=== PATIENT | male | born 1940 | race African-American/Black ===

== ENCOUNTER 2016-12-12 15:22 | Emergency (ER) | payer MEDICARE, OTHER ==
[~2016-12-12] VITALS: Ht 177.8 cm; Wt 80.0 kg
[~2016-12-12 15:22] MED LIST: AMLO1CAP PO; SIMV20TA6 PO
[2016-12-12] MEDS ORDERED: SODIUM CHLORIDE 0.9% 1,000 ML IV ONE (16:02)
[2016-12-12 16:47] LABS: BASOPHILS % 0.5 % (0.0-2.0); EOSINOPHILS % 0.4 % (0.0-5.0); HEMATOCRIT. 37.8 % (42.0-52.0); LYMPHOCYTES % 18.4 % (20.0-50.0); MEAN CORPUSCULAR HEMOGLOBIN 30.9 pg (28.0-32.0); MEAN CORPUSCULAR VOLUME 89.9 fL (80.0-94.0); MEAN PLATELET VOLUME 8.4 fl (7.4-10.4); MONOCYTES % 6.9 % (2.0-8.0); NEUTROPHILS % 73.8 % (40.0-76.0); PLATELET 205 x1000/uL (130-400); RED BLOOD CELL COUNT 4.21 mill/uL (4.7-6.1)
[2016-12-12 16:50] LABS: PROTHROMBIN TIME 10.8 sec
[2016-12-12 16:58] LABS: CARBON DIOXIDE 25 mEq/L (21-32); CHLORIDE 106 mEq/L (98-107)
[2016-12-12 17:16] LABS: CLARITY URINE CLEAR (CLEAR); COLOR URINE DARK YELLOW (YELLOW); GLUCOSE URINE NEGATIVE (NEGATIVE); KETONES URINE TRACE (NEGATIVE); LEUKOCYTE ESTERASE URINE TRACE (NEGATIVE); NITRITE URINE NEGATIVE (NEGATIVE); OCCULT BLOOD URINE NEGATIVE (NEGATIVE); PROTEIN URINE NEGATIVE (NEGATIVE); SPECIFIC GRAVITY URINE 1.023 (1.005-1.030)
[2016-12-12] MEDS ORDERED: SODIUM CHLORIDE 0.9% 1000ML BAG (SEPSIS BOLUS) IV ONE (17:30)
[2016-12-12] MEDS ORDERED: SODIUM CHLORIDE 0.9% 1,400 ML IV SCH (17:45)
[2016-12-12 19:25] VITALS: BP 160/79
== END 2016-12-12 19:30 | disposition home or self-care (01) ==
LOC: ER 16:36
DX: N39.0 Urinary tract infection, site not specified (principal); E78.00 Pure hypercholesterolemia, unspecified; I51.9 Heart disease, unspecified; Z86.73 Personal history of transient ischemic attack (TIA), and cerebral infarction without residual deficits
CPT/HCPCS: 36415; 71010; 72146; 72148; 80053; 81001; 83605; 83690; 85025; 85610; 87040; 87086; 96360; 96361; 99285; J7030; A4315

== ENCOUNTER 2016-12-26 14:51 | Emergency (ER) | payer MEDICARE, OTHER ==
[~2016-12-26] VITALS: Ht 177.8 cm; Wt 80.0 kg
[2016-12-26 17:45] VITALS: BP 136/72
== END 2016-12-26 18:16 | disposition home or self-care (01) ==
LOC: ER 17:08
DX: R33.9 Retention of urine, unspecified (principal); I10 Essential (primary) hypertension
CPT/HCPCS: 99281

== ENCOUNTER 2017-10-09 12:09 | Emergency (ER) | payer MEDICARE, OTHER ==
[~2017-10-09] VITALS: Ht 177.8 cm; Wt 81.0 kg
[2017-10-09] MEDS ORDERED: MAGNESIUM CITRATE 300ML SOLUTION PO ONE (13:15)
[2017-10-09] MEDS ORDERED: LACTULOSE 20G/30ML UDC PO ONE (13:15)
[2017-10-09 14:04] VITALS: BP 123/68
== END 2017-10-09 15:00 | disposition home or self-care (01) ==
LOC: ER 15:00
DX: K59.00 Constipation, unspecified (principal); R30.0 Dysuria; I10 Essential (primary) hypertension
CPT/HCPCS: 51702; 99284; A4315

== ENCOUNTER 2020-02-16 11:50 | Inpatient (IN) | payer MEDICARE, OTHER ==
[~2020-02-16] VITALS: Ht 172.7 cm; Wt 77.8 kg
[~2020-02-16 11:50] MED LIST changes: +SIMV-43 PO; -SIMV20TA6 PO
[2020-02-16 13:08] LABS: BASOPHILS % 0.6 % (0.0-2.0); EOSINOPHILS % 0.5 % (0.0-5.0); HEMATOCRIT. 39.3 % (42.0-52.0); HEMOGLOBIN. 13.2 g/dL (14.0-18.0); LYMPHOCYTES % 19.5 % (20.0-50.0); MEAN CORPUSCULAR HEMOGLOBIN 30.4 pg (28.0-32.0); MEAN CORPUSCULAR VOLUME 90.4 fL (80.0-94.0); MEAN PLATELET VOLUME 8.4 fl (7.4-10.4); NEUTROPHILS % 71.4 % (40.0-76.0); PLATELET 267 x1000/uL (130-400); RED BLOOD CELL COUNT 4.35 mill/uL (4.7-6.1); RED CELL DISTRIBUTION WIDTH 16.3 % (11.6-14.6)
[2020-02-16 13:11] LABS: CHLORIDE 112 mEq/L (98-107)
[2020-02-16 13:12] LABS: INR 1.1
[2020-02-16 13:15] LABS: ETHANOL BLOOD < 10 mg/dL
[2020-02-16] MEDS ORDERED: AZITHROMYCIN 500 MG in DEXT 5% WATER 250 ML IV ONE (13:30)
[2020-02-16] MEDS ORDERED: CEFTRIAXONE 1 G PREMIX 50 ML IV ONE (13:30)
[2020-02-16 15:22] LABS: CLARITY URINE CLEAR (CLEAR); COLOR URINE ORANGE (YELLOW); KETONES URINE TRACE (NEGATIVE); LEUKOCYTE ESTERASE URINE NEGATIVE (NEGATIVE); NITRITE URINE NEGATIVE (NEGATIVE); OCCULT BLOOD URINE 1+ (NEGATIVE); PH URINE 5.5 (4.5-8.0); PROTEIN URINE 1+ (NEGATIVE); SPECIFIC GRAVITY URINE 1.024 (1.005-1.030)
[2020-02-16 15:43] LABS: *COCAINE SCREEN URINE NEGATIVE (NEGATIVE)
[2020-02-16 15:44] LABS: *AMPHETAMINES SCREEN URINE NEGATIVE (NEGATIVE); *BARBITURATES SCREEN URINE NEGATIVE (NEGATIVE); CANNABINOID URINE SCREEN NEGATIVE (NEGATIVE); METHADONE URINE SCREEN NEGATIVE (NEGATIVE); OPIATES URINE SCREEN NEGATIVE (NEGATIVE); PHENCYCLIDINE URINE SCREEN NEGATIVE (NEGATIVE)
[2020-02-16 15:45] LABS: *BENZODIAZEPINES SCREEN URINE NEGATIVE (NEGATIVE)
[2020-02-16] MEDS ORDERED: LORAZEPAM 2MG/ML CPJ IV NR (18:00)
[2020-02-16] MEDS ORDERED: ACETAMINOPHEN 325MG TABLET PO PRN ×2 (19:45)
[2020-02-16] MEDS ORDERED: LORAZEPAM 2MG/ML CPJ IV PRN (19:45)
[2020-02-16] MEDS ORDERED: MAGNESIUM/ALUMINUM HYDROXIDE/SIMETHICONE 30ML UDC PO PRN (19:45)
[2020-02-16] MEDS ORDERED: ZOLPIDEM TARTRATE 5MG TABLET PO PRN (19:45)
[2020-02-16] MEDS ORDERED: CLONIDINE 0.1MG TABLET PO PRN (19:45)
[2020-02-16] MEDS ORDERED: ONDANSETRON HCL 4MG/2ML INJ IV PRN (19:45)
[2020-02-16] MEDS ORDERED: DIPHENHYDRAMINE 50MG/ML VIAL IV PRN (19:45)
[2020-02-16] MEDS ORDERED: FOLIC ACID 1 MG, THIAMINE HCL 100 MG, MVI, ADULT NO.1 10 ML in DEXTROSE 5% WATER 1,000 ML IV ONE ×4 (21:00)
[2020-02-16] MEDS ORDERED: LEVOFLOXACIN 250MG PREMIX 50 ML IV SCH (21:00)
[2020-02-16 21:45] VITALS: BP 148/96
[2020-02-16 22:00] VITALS: BP 148/96
[2020-02-16] MEDS: SODIUM CHLORIDE 0.9% INJ 3ML FLUSH IVF SCH (23:10)
[2020-02-17] VITALS: BP 145/93
[2020-02-17] MEDS ORDERED: METO100T16 PO (01:32)
[2020-02-17] MEDS ORDERED: AMLO10TA80 PO (01:33)
[2020-02-17] MEDS ORDERED: GABA800T97 PO (01:35)
[2020-02-17] MEDS ORDERED: APIX2.5T PO (01:36)
[2020-02-17] MEDS ORDERED: EZETIMIBE PO (01:38)
[2020-02-17] MEDS ORDERED: FAMO20TA8 PO (01:39)
[2020-02-17] MEDS ORDERED: PREGABALIN PO ×3 (01:40→01:42)
[2020-02-17 04:00] VITALS: BP 104/64
[2020-02-17] MEDS: SODIUM CHLORIDE 0.9% INJ 3ML FLUSH IVF SCH ×3 (05:24→22:51)
[2020-02-17 06:47] LABS: BASOPHILS % 0.7 % (0.0-2.0); EOSINOPHILS % 1.6 % (0.0-5.0); HEMOGLOBIN. 12.7 g/dL (14.0-18.0); LYMPHOCYTES % 28.5 % (20.0-50.0); MEAN CORPUSCULAR VOLUME 90.4 fL (80.0-94.0); MONOCYTES % 10.8 % (2.0-8.0); NEUTROPHILS % 58.4 % (40.0-76.0); PLATELET 230 x1000/uL (130-400); RED BLOOD CELL COUNT 4.09 mill/uL (4.7-6.1); RED CELL DISTRIBUTION WIDTH 16.1 % (11.6-14.6)
[2020-02-17 06:52] LABS: CHLORIDE 111 mEq/L (98-107)
[2020-02-17 07:00] LABS: PHOSPHORUS 3.6 mg/dL (2.5-4.9)
[2020-02-17 12:00] VITALS: BP 116/62
[2020-02-17] MEDS ORDERED: IPRATROPIUM/ALBUTEROL 0.5-3(2.5)MG/3ML NEB HHN PRN (15:30)
[2020-02-17] MEDS: LEVOTHYROXINE SODIUM 75MCG TABLET PO SCH (15:30)
[2020-02-17 16:16] LABS: T4 FREE 0.88 ng/dL (0.76-1.46)
[2020-02-17] MEDS ORDERED: POTASSIUM CHLORIDE 20MEQ TABLET SR PO NR (17:00)
[2020-02-17] MEDS: CEFEPIME 500 MG in DEXTROSE 5% WATER 50 ML IV SCH (17:19)
[2020-02-17] MEDS: METRONIDAZOLE IV SCH (17:41)
[2020-02-17 20:00] VITALS: BP 136/87
[2020-02-17] MEDS ORDERED: LEVOFLOXACIN 500MG PREMIX 100 ML IV SCH (21:00)
[2020-02-17] MEDS ORDERED: ACETYLCYSTEINE 100MG/ML 10% VIAL 4ML INH SCH (22:00)
[2020-02-18] VITALS: BP_SYST 123; BP_SYST 134; BP_DIAS 63; BP_DIAS 84
[2020-02-18] MEDS: METRONIDAZOLE IV SCH ×2 (01:12→09:43)
[2020-02-18 04:00] VITALS: BP 141/90
[2020-02-18] MEDS: LEVOTHYROXINE SODIUM 75MCG TABLET PO SCH (06:50)
[2020-02-18] MEDS: SODIUM CHLORIDE 0.9% INJ 3ML FLUSH IVF SCH ×3 (06:50→23:04)
[2020-02-18 08:00] VITALS: BP 106/73
[2020-02-18] MEDS: IPRATROPIUM/ALBUTEROL 0.5-3(2.5)MG/3ML NEB HHN SCH ×2 (09:26→13:33)
[2020-02-18 12:00] VITALS: BP 127/74
[2020-02-18] MEDS ORDERED: POTASSIUM CHLORIDE 20MEQ TABLET SR PO NR (12:00)
[2020-02-18] MEDS: METOPROLOL TARTRATE 25MG TABLET PO SCH ×2 (14:57→20:46)
[2020-02-18 16:00] VITALS: BP 133/58
[2020-02-18] MEDS: DILTIAZEM HCL 30MG TABLET PO SCH ×2 (18:18→23:04)
[2020-02-18] MEDS: CEFEPIME 500 MG in DEXTROSE 5% WATER 50 ML IV SCH (18:19)
[2020-02-18] MEDS: METRONIDAZOLE 250MG TABLET PO SCH ×2 (18:19→23:04)
[2020-02-18 20:34] VITALS: BP 127/84
[2020-02-18] MEDS: APIXABAN 5 MG TABLET PO SCH (20:46)
[2020-02-19 00:22] VITALS: BP 155/80
[2020-02-19 04:00] VITALS: BP 116/71
[2020-02-19 05:58] LABS: PHOSPHORUS 3.6 mg/dL (2.5-4.9)
[2020-02-19 06:07] LABS: BASOPHILS % 0.6 % (0.0-2.0); EOSINOPHILS % 0.4 % (0.0-5.0); HEMATOCRIT. 36.7 % (42.0-52.0); HEMOGLOBIN. 12.5 g/dL (14.0-18.0); MEAN CORPUSCULAR VOLUME 90.9 fL (80.0-94.0); MEAN PLATELET VOLUME 9.5 fl (7.4-10.4); MONOCYTES % 12.5 % (2.0-8.0); NEUTROPHILS % 66.5 % (40.0-76.0); PLATELET 218 x1000/uL (130-400); RED BLOOD CELL COUNT 4.04 mill/uL (4.7-6.1); RED CELL DISTRIBUTION WIDTH 15.9 % (11.6-14.6)
[2020-02-19] MEDS: SODIUM CHLORIDE 0.9% INJ 3ML FLUSH IVF SCH ×3 (06:11→21:22)
[2020-02-19] MEDS: DILTIAZEM HCL 30MG TABLET PO SCH ×3 (06:11→17:31)
[2020-02-19] MEDS: METRONIDAZOLE 250MG TABLET PO SCH ×3 (06:12→21:25)
[2020-02-19] MEDS: LEVOTHYROXINE SODIUM 75MCG TABLET PO SCH (06:12)
[2020-02-19 08:00] VITALS: BP 124/78
[2020-02-19] MEDS: APIXABAN 5 MG TABLET PO SCH (09:00)
[2020-02-19] MEDS: METOPROLOL TARTRATE 25MG TABLET PO SCH ×2 (09:28→21:25)
[2020-02-19 12:00] VITALS: BP 124/73
[2020-02-19 16:00] VITALS: BP 117/72
[2020-02-19] MEDS: CEFEPIME 500 MG in DEXTROSE 5% WATER 50 ML IV SCH (17:31)
[2020-02-19 20:00] VITALS: BP 122/68
[2020-02-20] VITALS: BP 166/76
[2020-02-20] MEDS: DILTIAZEM HCL 30MG TABLET PO SCH ×4 (01:13→17:25)
[2020-02-20 04:00] VITALS: BP 102/68
[2020-02-20] MEDS: SODIUM CHLORIDE 0.9% INJ 3ML FLUSH IVF SCH ×3 (05:10→21:11)
[2020-02-20] MEDS: LEVOTHYROXINE SODIUM 75MCG TABLET PO SCH (05:48)
[2020-02-20] MEDS: METRONIDAZOLE 250MG TABLET PO SCH ×3 (05:48→21:11)
[2020-02-20 07:39] LABS: VITAMIN B12 SERUM 462 pg/mL (211-911)
[2020-02-20] MEDS: METOPROLOL TARTRATE 25MG TABLET PO SCH ×2 (09:38→20:27)
[2020-02-20] MEDS: CEFEPIME 500 MG in DEXTROSE 5% WATER 50 ML IV SCH (16:35)
[2020-02-20] MEDS ORDERED: MAGNESIUM HYDROXIDE 400MG/5ML 30ML UDC PO PRN (19:00)
[2020-02-20] MEDS ORDERED: BISACODYL 10MG SUPP PR PRN (19:00)
[2020-02-20 20:00] VITALS: BP 110/70
[2020-02-20] MEDS: DEXT 5%/0.45% NACL 1000ML 1,000 ML IV SCH (20:26)
[2020-02-21] VITALS: BP_SYST 111; BP_SYST 116; BP_DIAS 63; BP_DIAS 66
[2020-02-21] MEDS: DILTIAZEM HCL 30MG TABLET PO SCH ×4 (00:15→21:02)
[2020-02-21 04:00] VITALS: BP 119/68
[2020-02-21] MEDS: LEVOTHYROXINE SODIUM 75MCG TABLET PO SCH (05:53)
[2020-02-21] MEDS: METRONIDAZOLE 250MG TABLET PO SCH ×3 (05:54→21:06)
[2020-02-21] MEDS: SODIUM CHLORIDE 0.9% INJ 3ML FLUSH IVF SCH ×3 (05:54→21:06)
[2020-02-21 08:00] VITALS: BP 126/76
[2020-02-21] MEDS: DEXT 5%/0.45% NACL 1000ML 1,000 ML IV SCH ×2 (08:37→15:11)
[2020-02-21] MEDS: DOCUSATE SODIUM 100MG CAPSULE PO SCH ×2 (08:37→16:38)
[2020-02-21] MEDS: METOPROLOL TARTRATE 25MG TABLET PO SCH ×2 (08:38→21:00)
[2020-02-21 11:56] LABS: CREATINE KINASE 183 IU/L (39-308)
[2020-02-21 12:00] VITALS: BP 127/83
[2020-02-21] MEDS: FINASTERIDE 5MG TABLET PO SCH (12:50)
[2020-02-21 16:00] VITALS: BP 117/72
[2020-02-21] MEDS: CEFEPIME 500 MG in DEXTROSE 5% WATER 50 ML IV SCH (16:38)
[2020-02-21 20:00] VITALS: BP 135/76
[2020-02-21] MEDS ORDERED: TAMSULOSIN HCL 0.4MG SR CAPSULE PO SCH (21:00)
[2020-02-22] VITALS: BP 135/89
[2020-02-22] MEDS: DEXT 5%/0.45% NACL 1000ML 1,000 ML IV SCH ×2 (03:08→13:27)
[2020-02-22 04:00] VITALS: BP 130/80
[2020-02-22] MEDS: SODIUM CHLORIDE 0.9% INJ 3ML FLUSH IVF SCH ×2 (05:45→13:22)
[2020-02-22] MEDS: LEVOTHYROXINE SODIUM 75MCG TABLET PO SCH (05:46)
[2020-02-22] MEDS: METRONIDAZOLE 250MG TABLET PO SCH ×2 (05:46→13:20)
[2020-02-22] MEDS: DILTIAZEM HCL 30MG TABLET PO SCH (05:46)
[2020-02-22 07:39] LABS: BASOPHILS % 0.6 % (0.0-2.0); EOSINOPHILS % 3.8 % (0.0-5.0); HEMATOCRIT. 32.9 % (42.0-52.0); HEMOGLOBIN. 11.2 g/dL (14.0-18.0); MEAN CORPUSCULAR HEMOGLOBIN 30.7 pg (28.0-32.0); MEAN CORPUSCULAR VOLUME 89.9 fL (80.0-94.0); MEAN PLATELET VOLUME 9.2 fl (7.4-10.4); MONOCYTES % 11.7 % (2.0-8.0); NEUTROPHILS % 59.9 % (40.0-76.0); PLATELET 104 x1000/uL (130-400); RED BLOOD CELL COUNT 3.66 mill/uL (4.7-6.1); RED CELL DISTRIBUTION WIDTH 15.7 % (11.6-14.6)
[2020-02-22 07:56] LABS: PHOSPHORUS 2.9 mg/dL (2.5-4.9)
[2020-02-22 08:00] VITALS: BP 132/86
[2020-02-22 08:03] LABS: CREATINE KINASE MB FRACTION 1.8 ng/mL (0.5-3.6)
[2020-02-22] MEDS: METOPROLOL TARTRATE 25MG TABLET PO SCH (09:27)
[2020-02-22] MEDS: FINASTERIDE 5MG TABLET PO SCH (09:27)
[2020-02-22] MEDS: DOCUSATE SODIUM 100MG CAPSULE PO SCH ×2 (09:27→17:58)
[2020-02-22 12:00] VITALS: BP 132/80
[2020-02-22] MEDS ORDERED: APIXABAN 2.5 MG TABLET PO SCH (12:30)
[2020-02-22] MEDS ORDERED: METOPROLOL TARTRATE 25MG TABLET PO SCH (14:00)
[2020-02-22 16:00] VITALS: BP 126/78
[2020-02-22 18:18] VITALS: BP 126/78
== END 2020-02-22 21:04 | disposition home or self-care (01) | DRG 871 ==
LOC: ER 12:05 → EDBEDREQ 13:29 → EDBEDREQTM 13:29 → 5WST 15:29 → EDBEDREQTM 15:35 → EDBEDREQ 15:35 → ENRESERV 20:40
PROVIDERS: ADMIT Internal Medicine; ATTEND Internal Medicine
DX: A41.9 Sepsis, unspecified organism (principal); J96.00 Acute respiratory failure, unspecified whether with hypoxia or hypercapnia; J69.0 Pneumonitis due to inhalation of food and vomit; G93.41 Metabolic encephalopathy; I61.5 Nontraumatic intracerebral hemorrhage, intraventricular; N17.9 Acute kidney failure, unspecified; N39.0 Urinary tract infection, site not specified; R17 Unspecified jaundice; I48.20 Chronic atrial fibrillation, unspecified; N13.8 Other obstructive and reflux uropathy; E87.2 Acidosis; E78.00 Pure hypercholesterolemia, unspecified; F03.90 Unspecified dementia, unspecified severity, without behavioral disturbance, psychotic disturbance, mood disturbance, and anxiety; F10.10 Alcohol abuse, uncomplicated; Y90.9 Presence of alcohol in blood, level not specified; S90.425A Blister (nonthermal), left lesser toe(s), initial encounter; X58.XXXA Exposure to other specified factors, initial encounter; E03.9 Hypothyroidism, unspecified; R94.6 Abnormal results of thyroid function studies; E78.5 Hyperlipidemia, unspecified; I65.22 Occlusion and stenosis of left carotid artery; N32.0 Bladder-neck obstruction; I70.202 Unspecified atherosclerosis of native arteries of extremities, left leg; N40.1 Benign prostatic hyperplasia with lower urinary tract symptoms; D64.9 Anemia, unspecified; Z79.01 Long term (current) use of anticoagulants; Z79.899 Other long term (current) drug therapy; Z82.49 Family history of ischemic heart disease and other diseases of the circulatory system; Z86.73 Personal history of transient ischemic attack (TIA), and cerebral infarction without residual deficits; Y93.89 Activity, other specified; Y92.89 Other specified places as the place of occurrence of the external cause; Y99.8 Other external cause status; I10 Essential (primary) hypertension
CPT/HCPCS: 36415; 70551; 71045; 76770; 80048; 80053; 80061; 80305; 80320; 81003; 82140; 82550; 82553; 82607; 82962; 83735; 84100; 84439; 84443; 84481; 84484; 85025; 93005; 93306; 93923; 94640; 97162; 97166; 97530; 99291; J0456; J0692; J0696; J1956; J2060; J3411; J3490; J7060; J7070; J7608; G0480

== ENCOUNTER 2020-03-08 20:10 | Emergency (ER) | payer MEDICARE, OTHER ==
[~2020-03-08] VITALS: Ht 175.3 cm; Wt 80.0 kg
[~2020-03-08 20:10] MED LIST changes: +AMLO10TA80 PO; -AMLO1CAP PO; +APIX2.5T PO; +EZETIMIBE PO; +FAMO20TA8 PO; +GABA800T97 PO; +METO100T16 PO; +PREGABALIN PO
[2020-03-09 00:30] VITALS: BP 124/63
== END 2020-03-09 01:57 | disposition left against medical advice (07) ==
LOC: ER 20:10
DX: R33.9 Retention of urine, unspecified (principal); I10 Essential (primary) hypertension; E78.00 Pure hypercholesterolemia, unspecified; Z79.899 Other long term (current) drug therapy; Z98.890 Other specified postprocedural states
CPT/HCPCS: 81003; 99281

== ENCOUNTER 2020-03-10 14:46 | Emergency (ER) | payer MEDICARE ==
[~2020-03-10] VITALS: Ht 175.3 cm; Wt 77.0 kg
[2020-03-10 16:25] LABS: BASOPHILS % 0.6 % (0.0-2.0); EOSINOPHILS % 0.6 % (0.0-5.0); HEMATOCRIT. 35.6 % (42.0-52.0); HEMOGLOBIN. 12.1 g/dL (14.0-18.0); MEAN CORPUSCULAR HEMOGLOBIN 30.4 pg (28.0-32.0); MEAN CORPUSCULAR VOLUME 89.6 fL (80.0-94.0); MEAN PLATELET VOLUME 8.2 fl (7.4-10.4); MONOCYTES % 6.8 % (2.0-8.0); PLATELET 305 x1000/uL (130-400); RED BLOOD CELL COUNT 3.97 mill/uL (4.7-6.1); RED CELL DISTRIBUTION WIDTH 15.3 % (11.6-14.6)
[2020-03-10 16:36] LABS: CHLORIDE 111 mEq/L (98-107)
[2020-03-10 16:45] LABS: CLARITY URINE CLEAR (CLEAR); COLOR URINE YELLOW (YELLOW); KETONES URINE NEGATIVE (NEGATIVE); LEUKOCYTE ESTERASE URINE TRACE (NEGATIVE); NITRITE URINE NEGATIVE (NEGATIVE); OCCULT BLOOD URINE 3+ (NEGATIVE); PH URINE 5.5 (4.5-8.0); PROTEIN URINE TRACE (NEGATIVE); SPECIFIC GRAVITY URINE 1.017 (1.005-1.030)
[2020-03-10 18:00] VITALS: BP 111/71
== END 2020-03-10 18:20 | disposition home or self-care (01) ==
LOC: ER 14:46
DX: R33.9 Retention of urine, unspecified (principal); E78.00 Pure hypercholesterolemia, unspecified; I10 Essential (primary) hypertension; Z79.899 Other long term (current) drug therapy
CPT/HCPCS: 36415; 80053; 81003; 85025; 87077; 87186; 93005; 99284

== ENCOUNTER 2020-07-18 17:52 | Inpatient (IN) | payer MEDICARE, OTHER ==
[~2020-07-18] VITALS: Ht 175.3 cm; Wt 64.9 kg
[~2020-07-18 17:52] MED LIST changes: -APIX2.5T PO; +APIX5TAB PO; +GABA-532 PO; -GABA800T97 PO; -METO100T16 PO; +METO25TA6 PO
[2020-07-18 18:56] LABS: CLARITY URINE TURBID (CLEAR); KETONES URINE TRACE (NEGATIVE); LEUKOCYTE ESTERASE URINE 2+ (NEGATIVE); NITRITE URINE POSITIVE (NEGATIVE); OCCULT BLOOD URINE 3+ (NEGATIVE); PROTEIN URINE 4+ (NEGATIVE); SPECIFIC GRAVITY URINE 1.023 (1.005-1.030); UROBILINOGEN URINE 0.2 E.U./dL (0.2-1.0)
[2020-07-18 18:57] LABS: COLOR URINE BLOODY (YELLOW)
[2020-07-18] MEDS ORDERED: SODIUM CHLORIDE 0.9% 1,000 ML IV ONE ×2 (19:00)
[2020-07-18 19:08] LABS: BASOPHILS % 0.5 % (0.0-2.0); HEMATOCRIT. 30.4 % (42.0-52.0); HEMOGLOBIN. 9.9 g/dL (14.0-18.0); LYMPHOCYTES % 15.2 % (20.0-50.0); MEAN CORPUSCULAR VOLUME 77.3 fL (80.0-94.0); MEAN PLATELET VOLUME 7.1 fl (7.4-10.4); MONOCYTES % 5.1 % (2.0-8.0); NEUTROPHILS % 78.2 % (40.0-76.0); PLATELET 370 x1000/uL (130-400); RED BLOOD CELL COUNT 3.94 mill/uL (4.7-6.1); RED CELL DISTRIBUTION WIDTH 22.2 % (11.6-14.6)
[2020-07-18 19:11] LABS: CHLORIDE 107 mEq/L (98-107)
[2020-07-18 19:21] LABS: CREATINE KINASE 374 IU/L (39-308)
[2020-07-18 19:22] LABS: INR 1.2
[2020-07-18 19:28] LABS: PLATELET ESTIMATE NORMAL
[2020-07-18] MEDS ORDERED: POTASSIUM CHLORIDE 20MEQ TABLET SR PO NR (20:30)
[2020-07-18] MEDS ORDERED: CEFTRIAXONE 1 G PREMIX 50 ML IV NR (20:30)
[2020-07-19] MEDS ORDERED: ACETAMINOPHEN 325MG TABLET PO PRN (08:00)
[2020-07-19] MEDS ORDERED: ONDANSETRON HCL 4MG/2ML INJ IV PRN (08:00)
[2020-07-19 11:30] VITALS: BP 136/67
[2020-07-19 16:00] VITALS: BP 130/64
[2020-07-19 20:00] VITALS: BP 138/76
[2020-07-19] MEDS ORDERED: CEFTRIAXONE 1 G PREMIX 50 ML IV SCH (20:00)
[2020-07-19] MEDS: CEFTRIAXONE 1,000 MG in DEXTROSE 5% WATER 50 ML IV SCH (21:20)
[2020-07-19] MEDS: ENOXAPARIN 80MG/0.8ML SYR SUBCUT SCH (21:21)
[2020-07-20] VITALS: BP 123/65
[2020-07-20 04:00] VITALS: BP 140/90
[2020-07-20 06:01] LABS: CHLORIDE 108 mEq/L (98-107)
[2020-07-20 06:22] LABS: BASOPHILS % 0.4 % (0.0-2.0); EOSINOPHILS % 1.1 % (0.0-5.0); HEMATOCRIT. 26.3 % (42.0-52.0); HEMOGLOBIN. 8.8 g/dL (14.0-18.0); LYMPHOCYTES % 24.7 % (20.0-50.0); MEAN CORPUSCULAR HEMOGLOBIN 25.7 pg (28.0-32.0); MEAN CORPUSCULAR VOLUME 76.3 fL (80.0-94.0); MEAN PLATELET VOLUME 7.4 fl (7.4-10.4); MONOCYTES % 5.7 % (2.0-8.0); NEUTROPHILS % 68.1 % (40.0-76.0); PLATELET 312 x1000/uL (130-400); RED BLOOD CELL COUNT 3.44 mill/uL (4.7-6.1); RED CELL DISTRIBUTION WIDTH 22.4 % (11.6-14.6)
[2020-07-20 08:00] VITALS: BP 149/83
[2020-07-20] MEDS: ENOXAPARIN 80MG/0.8ML SYR SUBCUT SCH ×2 (09:06→21:39)
[2020-07-20] MEDS ORDERED: POTASSIUM CHLORIDE 20MEQ TABLET SR PO SCH (09:45)
[2020-07-20 12:00] VITALS: BP 138/76
[2020-07-20 16:00] VITALS: BP 134/77
[2020-07-20] MEDS: CEFTRIAXONE 1,000 MG in DEXTROSE 5% WATER 50 ML IV SCH (21:38)
[2020-07-21 04:00] VITALS: BP 142/86
[2020-07-21 06:58] LABS: CHLORIDE 109 mEq/L (98-107)
[2020-07-21 07:17] LABS: BASOPHILS % 0.3 % (0.0-2.0); EOSINOPHILS % 0.6 % (0.0-5.0); HEMATOCRIT. 27.8 % (42.0-52.0); HEMOGLOBIN. 9.3 g/dL (14.0-18.0); LYMPHOCYTES % 25.4 % (20.0-50.0); MEAN CORPUSCULAR HEMOGLOBIN 25.8 pg (28.0-32.0); MEAN CORPUSCULAR VOLUME 76.9 fL (80.0-94.0); MEAN PLATELET VOLUME 7.4 fl (7.4-10.4); MONOCYTES % 4.2 % (2.0-8.0); NEUTROPHILS % 69.5 % (40.0-76.0); PLATELET 346 x1000/uL (130-400); RED BLOOD CELL COUNT 3.62 mill/uL (4.7-6.1); RED CELL DISTRIBUTION WIDTH 22.1 % (11.6-14.6)
[2020-07-21] MEDS ORDERED: POTASSIUM CHLORIDE 20MEQ TABLET SR PO ONE (07:31)
[2020-07-21 08:00] VITALS: BP 135/70
[2020-07-21] MEDS: POTASSIUM CHLORIDE 20MEQ TABLET SR PO SCH ×4 (08:25→22:59)
[2020-07-21] MEDS: ENOXAPARIN 80MG/0.8ML SYR SUBCUT SCH ×2 (08:32→21:37)
[2020-07-21] MEDS ORDERED: LIDOCAINE HCL 1% 20ML VIAL (Pyxis) INJ ONE (09:09)
[2020-07-21] MEDS ORDERED: SODIUM BICARBONATE 4% (2.4MEQ) 5ML VIAL IV ONE (09:09)
[2020-07-21 12:00] VITALS: BP 96/69
[2020-07-21] MEDS: MEGESTROL ACETATE 400 MG/10 ML UDC PO SCH (14:00)
[2020-07-21] MEDS ORDERED: MAGNESIUM/ALUMINUM HYDROXIDE/SIMETHICONE 30ML UDC PO PRN (14:00)
[2020-07-21] MEDS: PANTOPRAZOLE SODIUM 40 MG/VIAL IV SCH (14:15)
[2020-07-21 16:00] VITALS: BP 127/59
[2020-07-21] MEDS: METOCLOPRAMIDE HCL 10MG/2ML VIAL IV SCH ×2 (18:18→23:03)
[2020-07-21 20:00] VITALS: BP 112/64
[2020-07-21 20:52] LABS: PHOSPHORUS 2.9 mg/dL (2.5-4.9)
[2020-07-21] MEDS: CEFTRIAXONE 1,000 MG in DEXTROSE 5% WATER 50 ML IV SCH (21:37)
[2020-07-21] MEDS: FAMOTIDINE 20MG TABLET PO SCH (21:37)
[2020-07-21] MEDS: HYDROCODONE/ACETAMINOPHEN 10/325MG TABLET PO PRN (22:11)
[2020-07-22] VITALS: BP 133/68
[2020-07-22] MEDS: POTASSIUM CHLORIDE 20MEQ TABLET SR PO SCH ×2 (01:02→03:16)
[2020-07-22 04:00] VITALS: BP 151/76
[2020-07-22] MEDS: METOCLOPRAMIDE HCL 10MG/2ML VIAL IV SCH ×3 (06:00→18:19)
[2020-07-22 07:15] LABS: CHLORIDE 112 mEq/L (98-107)
[2020-07-22 07:22] LABS: AMYLASE 62 IU/L (25-115); PHOSPHORUS 2.8 mg/dL (2.5-4.9)
[2020-07-22 07:25] LABS: TOTAL IRON BINDING CAPACITY 160 ug/dL (250-450)
[2020-07-22 07:32] LABS: BASOPHILS % 0.5 % (0.0-2.0); EOSINOPHILS % 1.1 % (0.0-5.0); HEMATOCRIT. 23.4 % (42.0-52.0); HEMOGLOBIN. 7.8 g/dL (14.0-18.0); LYMPHOCYTES % 25.8 % (20.0-50.0); MEAN CORPUSCULAR HEMOGLOBIN 25.8 pg (28.0-32.0); MEAN CORPUSCULAR VOLUME 77.2 fL (80.0-94.0); MEAN PLATELET VOLUME 7.4 fl (7.4-10.4); MONOCYTES % 5.6 % (2.0-8.0); PLATELET 252 x1000/uL (130-400); RED BLOOD CELL COUNT 3.03 mill/uL (4.7-6.1); RED CELL DISTRIBUTION WIDTH 22.9 % (11.6-14.6)
[2020-07-22 08:00] VITALS: BP 130/75
[2020-07-22 08:23] LABS: FOLIC ACID (FOLATE) SERUM 18.2 ng/mL (>5.38)
[2020-07-22] MEDS: PANTOPRAZOLE SODIUM 40 MG/VIAL IV SCH (08:48)
[2020-07-22] MEDS: MEGESTROL ACETATE 400 MG/10 ML UDC PO SCH (08:48)
[2020-07-22] MEDS: ENOXAPARIN 80MG/0.8ML SYR SUBCUT SCH ×2 (08:48→23:09)
[2020-07-22 12:00] VITALS: BP 105/48
[2020-07-22 16:00] VITALS: BP 116/59
[2020-07-22] MEDS ORDERED: LEVO500T89 MT (19:19)
[2020-07-22 21:23] VITALS: BP 114/54
[2020-07-22] MEDS: FAMOTIDINE 20MG TABLET PO SCH (23:09)
[2020-07-22] MEDS: CEFTRIAXONE 1,000 MG in DEXTROSE 5% WATER 50 ML IV SCH (23:09)
[2020-07-23 00:47] VITALS: BP 132/70
[2020-07-23 04:54] VITALS: BP 139/64
[2020-07-23 08:00] VITALS: BP 126/70
[2020-07-23] MEDS: PANTOPRAZOLE SODIUM 40 MG/VIAL IV SCH (08:58)
[2020-07-23] MEDS: MEGESTROL ACETATE 400 MG/10 ML UDC PO SCH (08:58)
[2020-07-23] MEDS: HYDROCODONE/ACETAMINOPHEN 10/325MG TABLET PO PRN (08:59)
[2020-07-23] MEDS: ENOXAPARIN 80MG/0.8ML SYR SUBCUT SCH (08:59)
[2020-07-23 12:06] VITALS: BP 127/75
== END 2020-07-23 12:35 | disposition home health service (06) | DRG 698 ==
LOC: ER 17:52 → 6EST 22:05 → EDBEDREQTM 22:09 → EDBEDREQ 22:09 → ENRESERV 07-19 10:10 → CANRESERV 07-19 10:10 → ER 07-19 10:35
PROVIDERS: ADMIT Internal Medicine; ATTEND Internal Medicine
PROC: 02HV33Z Insertion of Infusion Device into Superior Vena Cava, Percutaneous Approach (ICD-10-PCS; principal; 2020-07-21)
PROC: B548ZZA Ultrasonography of Superior Vena Cava, Guidance (ICD-10-PCS; 2020-07-21)
DX: T83.511A Infection and inflammatory reaction due to indwelling urethral catheter, initial encounter (principal); E43 Unspecified severe protein-calorie malnutrition; N39.0 Urinary tract infection, site not specified; D64.9 Anemia, unspecified; E78.5 Hyperlipidemia, unspecified; E87.6 Hypokalemia; I25.10 Atherosclerotic heart disease of native coronary artery without angina pectoris; I48.91 Unspecified atrial fibrillation; N40.0 Benign prostatic hyperplasia without lower urinary tract symptoms; D50.9 Iron deficiency anemia, unspecified; D63.8 Anemia in other chronic diseases classified elsewhere; I10 Essential (primary) hypertension; R19.7 Diarrhea, unspecified; Y84.6 Urinary catheterization as the cause of abnormal reaction of the patient, or of later complication, without mention of misadventure at the time of the procedure; Y82.8 Other medical devices associated with adverse incidents; E78.00 Pure hypercholesterolemia, unspecified; Z79.01 Long term (current) use of anticoagulants; Z86.73 Personal history of transient ischemic attack (TIA), and cerebral infarction without residual deficits; Z86.711 Personal history of pulmonary embolism; Z79.899 Other long term (current) drug therapy; Y92.89 Other specified places as the place of occurrence of the external cause; L89.220 Pressure ulcer of left hip, unstageable; L89.890 Pressure ulcer of other site, unstageable; S30.0XXA Contusion of lower back and pelvis, initial encounter
CPT/HCPCS: 36415; 71045; 74176; 76937; 80048; 80053; 81003; 82040; 82150; 82550; 82607; 82705; 82728; 82746; 83036; 83540; 83550; 83615; 83735; 84100; 84132; 84134; 84153; 84436; 84443; 85025; 85044; 87015; 87045; 87106; 87427; 87449; 87493; 89055; 93005; 96365; 97110; 97162; 97530; 99285; C1725; C9113; J0696; J1650; J2765; J3490; J7030; J7040; J7060; A4315; G0103